=== PATIENT | female | born 1975 | race American Indian/Alaskan Native ===

== ENCOUNTER 2019-06-04 13:42 | Outpatient (CLI) | payer BC ==
[2019-06-04 14:16] LABS: Hematocrit 35.3 % (30.3-42.9); Hemoglobin 11.4 gm/dl (10.1-14.3); Mean Corpuscular HGB Conc 32 % (30-34); Mean Corpuscular Volume 81 fl (79-97); Platelet Count 276 K/mm3 (140-440); Red Blood Count 4.37 M/mm3 (3.65-5.03); Red Cell Distribution Width 19.4 % (13.2-15.2)
[2019-06-04 14:37] LABS: Erythrocyte Sedimentation Rate 16 mm/Hr (0-20)
[2019-06-04 15:43] LABS: Alanine Aminotransferase 19 units/L (7-56); BUN/Creatinine Ratio 17; Blood Urea Nitrogen 12 mg/dL (7-17); Calcium 10.2 mg/dL (8.4-10.2); Hemolysis Index 3
[2019-06-09 16:40] LABS: Vitamin D, 25-OH, D2 <4 ng/mL
== END 2019-06-04 13:43 | disposition home or self-care (01) ==
LOC: LAB 13:42
PROVIDERS: ATTEND Specialist
DX: G45.9 Transient cerebral ischemic attack, unspecified (principal); R55 Syncope and collapse
CPT/HCPCS: 36415; 80053; 82306; 82607; 83036; 83921; 84443; 85027; 85652; 86038; 86225; 86334; 86431; 86592; 86689

== ENCOUNTER 2020-01-19 10:59 | Emergency (ER) | payer BC ==
[2020-01-19 11:15] VITALS: BP 152/106
--- NOTE | 2020-01-19 14:07 | Emergency Department Report ---
ED ENT HPI - General Chief complaint: Sore Throat Stated complaint: THROAT PAIN Time Seen by Provider: 01/19/20 12:18 Source: patient Mode of arrival: Ambulatory Limitations: No Limitations - History of Present Illness Initial comments: 44-year-old -Faro[place] female presents emergency department complaining of a few month history of episodic odynophagia and dysphagia have a burning sensation when eating and drinking certain things. She did drink some turmeric to try to help resolve the symptoms which made the burning worse. She reports no dyspepsia no nausea or or vomiting no change in voice no drooling. No pain to the area no fevers chills or sweats MD complaint: sore throat -: Gradual, month(s) Location: throat Severity: mild, moderate Quality: dull Consistency: constant Improves with: none Worsens with: swallowing Associated Symptoms: sore throat. denies: cough, gum swelling, discharge from ear, rhinorrhea - Related Data Previous Rx's Medication Instructions Recorded Last Taken Type Hydrocortisone 1% [Hydrocortisone 1 applicatio TP TID #1 tube 12/26/14 Unknown Rx 1% CREAM] Ibuprofen [Motrin] 800 mg PO Q8HR PRN #90 tablet 12/26/14 Unknown Rx hydrOXYzine PAMOATE [Vistaril] 25 mg PO Q6HR PRN #20 capsule 12/26/14 Unknown Rx traMADoL [Ultram] 50 mg PO Q6HR PRN #14 tablet 12/26/14 Unknown Rx Amoxicillin [Trimox CAP] 500 mg PO Q8H #30 capsule 01/19/20 Unknown Rx Pantoprazole Sodium [Protonix] 40 mg PO DAILY #20 01/19/20 Unknown Rx Allergies Allergy/AdvReac Type Severity Reaction Status Date / Time No Known Allergies Allergy Unverified 12/26/14 20:40 ED Dental HPI - General Chief complaint: Sore Throat Stated complaint: THROAT PAIN Time Seen by Provider: 01/19/20 12:18 Source: patient Mode of arrival: Ambulatory Limitations: No Limitations - Related Data Previous Rx's Medication Instructions Recorded Last Taken Type Hydrocortisone 1% [Hydrocortisone 1 applicatio TP TID #1 tube 12/26/14 Unknown Rx 1% CREAM] Ibuprofen [Motrin] 800 mg PO Q8HR PRN #90 tablet 12/26/14 Unknown Rx hydrOXYzine PAMOATE [Vistaril] 25 mg PO Q6HR PRN #20 capsule 12/26/14 Unknown Rx traMADoL [Ultram] 50 mg PO Q6HR PRN #14 tablet 12/26/14 Unknown Rx Amoxicillin [Trimox CAP] 500 mg PO Q8H #30 capsule 01/19/20 Unknown Rx Pantoprazole Sodium [Protonix] 40 mg PO DAILY #20 granpkt. 01/19/20 Unknown Rx Allergies Allergy/AdvReac Type Severity Reaction Status Date / Time No Known Allergies Allergy Unverified 12/26/14 20:40 ED Review of Systems ROS: Stated complaint: THROAT PAIN Other details as noted in HPI Comment: All other systems reviewed and negative ED Past Medical Hx - Past Medical History Previous Medical History?: No Additional medical history: Vaginal delivery x 3 - Social History Smoking Status: Never Smoker Substance Use Type: Alcohol - Medications Home Medications: Home Medications Medication Instructions Recorded Confirmed Last Taken Type Hydrocortisone 1% [Hydrocortisone 1 applicatio TP TID #1 tube 12/26/14 Unknown Rx 1% CREAM] Ibuprofen [Motrin] 800 mg PO Q8HR PRN #90 tablet 12/26/14 Unknown Rx hydrOXYzine PAMOATE [Vistaril] 25 mg PO Q6HR PRN #20 capsule 12/26/14 Unknown Rx traMADoL [Ultram] 50 mg PO Q6HR PRN #14 tablet 12/26/14 Unknown Rx Amoxicillin [Trimox CAP] 500 mg PO Q8H #30 capsule 01/19/20 Unknown Rx Pantoprazole Sodium [Protonix] 40 mg PO DAILY #20 granpkt. 01/19/20 Unknown Rx ED Physical Exam - General Limitations: No Limitations General appearance: alert, in no apparent distress - Head Head exam: Present: atraumatic, normocephalic - Eye Eye exam: Present: normal appearance, PERRL, EOMI. Absent: scleral icterus Pupils: Present: normal accommodation - ENT ENT exam: Present: mucous membranes moist, TM's normal bilaterally, other (Pharynx is red with some erythema no exudate. Airway patent tongue and uvula are midline and normal size. Normal voice no drooling. Neck tenderness to the tonsillar lymph nodes with palpation. Mild swelling to the right tonsillar lymph node. No cellulitis is appreciated.). Absent: normal orophraynx - Neck Neck exam: Present: normal inspection, full ROM - Respiratory Respiratory exam: Present: normal lung sounds bilaterally. Absent: respiratory distress, wheezes, rales, chest wall tenderness, accessory muscle use - Cardiovascular Cardiovascular Exam: Present: regular rate, normal rhythm. Absent: systolic murmur, diastolic murmur, rubs, gallop - GI/Abdominal GI/Abdominal exam: Present: soft, normal bowel sounds. Absent: tenderness, guarding, rigid, hypoactive bowel sounds, organomegaly, mass - Extremities Exam Extremities exam: Present: normal inspection - Back Exam Back exam: Present: normal inspection - Neurological Exam Neurological exam: Present: alert, oriented X3 - Psychiatric Psychiatric exam: Present: normal affect, normal mood - Skin Skin exam: Present: warm, dry, intact, normal color. Absent: rash ED Course Vital Signs 01/19/20 11:12 Temperature 98.3 F Pulse Rate 75 Respiratory 20 Rate Blood Pressure 152/106 O2 Sat by Pulse 100 Oximetry Critical care attestation.: If time is entered above; I have spent that time in minutes in the direct care of this critically ill patient, excluding procedure time. ED Disposition Clinical Impression: Acute pharyngitis Disposition: DC-01 TO HOME OR SELFCARE Is pt being admited?: No Does the pt Need Aspirin: No Condition: Stable Instructions: Pharyngitis (ED), Strep Throat (ED) Prescriptions: Pantoprazole Sodium [Protonix] 40 mg PO DAILY #20 granpkt. Amoxicillin [Trimox CAP] 500 mg PO Q8H #30 capsule Referrals: JAMESON ALVAREZ MD [Staff Physician] - 3-5 Days
[2020-01-19] MEDS ORDERED: dexAMETHasone 4 MG/ML VIAL PO ONE (14:21)
== END 2020-01-19 14:30 | disposition home or self-care (01) ==
LOC: ED 10:59
DX: J02.9 Acute pharyngitis, unspecified (principal); Z79.899 Other long term (current) drug therapy; Z98.890 Other specified postprocedural states
CPT/HCPCS: 99282; J1100

== ENCOUNTER 2021-03-14 22:23 | Emergency (ER) | payer BC ==
[2021-03-14] MEDS ORDERED: hydrALAZINE 25 MG TAB PO ONE (22:39)
[2021-03-14] MEDS ORDERED: ASPIRIN 325 MG TAB PO ONE (22:39)
[2021-03-14] MEDS ORDERED: BUTALB/ACETAMINOPHEN/CAFFEINE TAB PO ONE (22:40)
[2021-03-14 23:48] LABS: Basophils % (Auto) 0.5 % (0.0-1.8); Eosinophils # (Auto) 0.1 K/mm3 (0.0-0.4); Eosinophils % (Auto) 2.2 % (0.0-4.3); Hematocrit 42.7 % (30.3-42.9); Hemoglobin 14.1 gm/dl (10.1-14.3); Lymphocytes % (Auto) 49.1 % (13.4-35.0); Mean Corpuscular HGB Conc 33 % (30-34); Mean Corpuscular Volume 94 fl (79-97); Monocytes # (Auto) 0.3 K/mm3 (0.0-0.8); Monocytes % (Auto) 4.9 % (0.0-7.3); Platelet Count 214 K/mm3 (140-440); Red Blood Count 4.57 M/mm3 (3.65-5.03); Red Cell Distribution Width 13.8 % (13.2-15.2)
--- NOTE | 2021-03-15 00:21 | XRay Report ---
XR chest routine 2V INDICATION / CLINICAL INFORMATION: chest pain, elevated BP. COMPARISON: None available. FINDINGS: SUPPORT DEVICES: None. HEART /PULMONARY VASCULATURE: No significant abnormality. LUNGS / PLEURA: No significant pulmonary or pleural abnormality. No pneumothorax. ADDITIONAL FINDINGS: No significant additional findings. IMPRESSION: 1. No acute findings. Signer Name: Jono Zapata MD Signed: 03/15/2021 12:16 AM Workstation Name: [id number]
[2021-03-15 00:22] LABS: Alanine Aminotransferase 20 units/L (7-56); Albumin 4.7 g/dL (3.9-5); Blood Urea Nitrogen 13 mg/dL (7-17); Calcium 9.9 mg/dL (8.4-10.2); Hemolysis Index 14
[2021-03-15 00:43] LABS: BUN/Creatinine Ratio 22
--- NOTE | 2021-03-15 01:00 | Emergency Department Report ---
ED General Adult HPI - General Chief complaint: High BP Stated complaint: HEADACHE AND HIGH BP Source: patient Mode of arrival: Ambulatory Limitations: No Limitations - History of Present Illness Initial comments: Patient is a 45-year-old -[place] female with no past medical history presents to the ED with complaint of acute onset persistent intermittent headache, lightheadedness, chest pain for the last 2 weeks intermittently. Patient also complains of persistently elevated blood pressure especially in the last 2 weeks, worse in the last 2 days. Patient states that her blood pressure prior to arrival in the ED was 180s systolic. Patient denies dizziness, synco pe, shortness of breath, palpitations, seizures, diaphoresis, neck pain, abdominal pain, nausea and vomiting, numbness and tingling or weakness of upper and lower extremities bilaterally. MD Complaint: Elevated blood pressure; persistent headache -: Sudden, week(s) (2) Location: head Radiation: non-radiation Severity scale (0 -10): 4 Quality: aching, sharp Consistency: intermittent Improves with: none Worsens with: none Associated Symptoms: denies other symptoms, chest pain. denies: confusion, cough, diaphoresis, fever/chills, headaches, loss of appetite, malaise, nausea/vomiting, rash, seizure, shortness of breath, syncope, weakness, other Treatments Prior to Arrival: none - Related Data Previous Rx's Medication Instructions Recorded Last Taken Type Hydrocortisone 1% [Hydrocortisone 1 applicatio TP TID #1 tube 12/26/14 Unknown Rx 1% CREAM] Ibuprofen [Motrin] 800 mg PO Q8HR PRN #90 tablet 12/26/14 Unknown Rx hydrOXYzine PAMOATE [Vistaril] 25 mg PO Q6HR PRN #20 capsule 12/26/14 Unknown Rx traMADoL [Ultram] 50 mg PO Q6HR PRN #14 tablet 12/26/14 Unknown Rx Amoxicillin [Trimox CAP] 500 mg PO Q8H #30 capsule 01/19/20 Unknown Rx Pantoprazole Sodium [Protonix] 40 mg PO DAILY #20 gran 01/19/20 Unknown Rx Butalb/Acetamin/Caff 50-325-40 1 - 2 tab PO Q6HR PRN #15 tab 03/15/21 Unknown Rx [Fioricet 50-325-40] amLODIPine 10 mg PO DAILY #30 tab 03/15/21 Unknown Rx Allergies Allergy/AdvReac Type Severity Reaction Status Date / Time No Known Allergies Allergy Unverified 12/26/14 20:40 ED Review of Systems ROS: Stated complaint: HEADACHE AND HIGH BP Other details as noted in HPI Constitutional: other (Elevated blood pressure). denies: chills, fever Eyes: denies: eye pain, eye discharge, vision change ENT: denies: ear pain, throat pain Respiratory: denies: cough, shortness of breath, wheezing Cardiovascular: chest pain. denies: palpitations Endocrine: no symptoms reported Gastrointestinal: denies: abdominal pain, nausea, diarrhea Genitourinary: denies: urgency, dysuria, discharge Musculoskeletal: denies: back pain, joint swelling, arthralgia Skin: denies: rash, lesions Neurological: headache. denies: weakness, paresthesias Psychiatric: denies: anxiety, depression Hematological/Lymphatic: denies: easy bleeding, easy bruising ED Past Medical Hx - Past Medical History Previous Medical History?: Yes Hx Hypertension: Yes Additional medical history: Vaginal delivery x 3 - Surgical History Past Surgical History?: No - Social History Smoking Status: Never Smoker Substance Use Type: Alcohol - Medications Home Medications: Home Medications Medication Instructions Recorded Confirmed Last Taken Type Hydrocortisone 1% [Hydrocortisone 1 applicatio TP TID #1 tube 12/26/14 Unknown Rx 1% CREAM] Ibuprofen [Motrin] 800 mg PO Q8HR PRN #90 tablet 12/26/14 Unknown Rx hydrOXYzine PAMOATE [Vistaril] 25 mg PO Q6HR PRN #20 capsule 12/26/14 Unknown Rx traMADoL [Ultram] 50 mg PO Q6HR PRN #14 tablet 12/26/14 Unknown Rx Amoxicillin [Trimox CAP] 500 mg PO Q8H #30 capsule 01/19/20 Unknown Rx Pantoprazole Sodium [Protonix] 40 mg PO DAILY #20 01/19/20 Unknown Rx Butalb/Acetamin/Caff 50-325-40 1 - 2 tab PO Q6HR PRN #15 tab 03/15/21 Unknown Rx [Fioricet 50-325-40] amLODIPine 10 mg PO DAILY #30 tab 03/15/21 Unknown Rx ED Physical Exam - General Limitations: No Limitations General appearance: alert, in no apparent distress - Head Head exam: Present: atraumatic, normocephalic, normal inspection - Eye Eye exam: Present: normal appearance, PERRL, EOMI Pupils: Present: normal accommodation - ENT ENT exam: Present: normal exam, normal orophraynx, mucous membranes moist, TM's normal bilaterally, normal external ear exam - Neck Neck exam: Present: normal inspection, full ROM - Respiratory Respiratory exam: Present: normal lung sounds bilaterally. Absent: respiratory distress, wheezes, rales, rhonchi, chest wall tenderness, accessory muscle use, decreased breath sounds, prolonged expiratory - Cardiovascular Cardiovascular Exam: Present: regular rate, normal rhythm, normal heart sounds. Absent: systolic murmur, diastolic murmur, rubs, gallop - GI/Abdominal GI/Abdominal exam: Present: soft, normal bowel sounds. Absent: tenderness, guarding, rebound, hyperactive bowel sounds, hypoactive bowel sounds, mass, hernia - Extremities Exam Extremities exam: Present: normal inspection, full ROM, normal capillary refill - Back Exam Back exam: Present: normal inspection, full ROM. Absent: tenderness, CVA tenderness (R), CVA tenderness (L), muscle spasm, paraspinal tenderness, vertebral tenderness - Neurological Exam Neurological exam: Present: alert, oriented X3, CN II-XII intact, normal gait, reflexes normal - Psychiatric Psychiatric exam: Present: normal affect, normal mood, anxious - Skin Skin exam: Present: warm, dry, intact, normal color. Absent: rash ED Course Vital Signs 03/14/21 03/14/21 03/15/21 22:26 23:30 01:34 Temperature 98.0 F 98.2 F Pulse Rate 79 158 H 80 Respiratory 18 20 Rate Blood Pressure 158/95 158/102 Blood Pressure 136/90 [Right] O2 Sat by Pulse 98 100 Oximetry ED Medical Decision Making - Lab Data Result diagrams: 03/14/21 23:05 03/14/21 23:05 - Radiology Data Radiology results: report reviewed, image reviewed - Medical Decision Making This is a 45-year-old -[place] female with no past medical history presents to the ED with complaint of acute onset persistent intermittent headache, lightheadedness, chest pain for the last 2 weeks intermittently. Patient also complains of persistently elevated blood pressure especially in the last 2 weeks, worse in the last 2 days. Patient states that her blood pressure prior to arrival in the ED was 180s systolic. In the ED, patient is alert and oriented x3 and is not in any distress. Chest x-ray shows no acute c ardiopulmonary abnormalities or pneumonitis. Lab test results were reviewed and are all nonactionable. Patient was treated in the ED for pain and also given treatment for hypertension. On reevaluation, patient's blood pressure improved significantly and patient's headache resolved with medications. Patient was therefore discharged home on a prescription of antihypertensive medications and was advised to follow-up with her primary care physician in 5 to 7 days for reevaluation or return to the ED immediately if symptoms get worse. - Differential Diagnosis Uncontrolled hypertension; anxiety; ACS; pneumonia; Critical care attestation.: If time is entered above; I have spent that time in minutes in the direct care of this critically ill patient, excluding procedure time. ED Disposition Clinical Impression: Uncontrolled stage 2 hypertension Acute tension-type headache Qualifiers: Intractability: not intractable Qualified Code(s): G44.209 - Tension-type headache, unspecified, not intractable Disposition: 01 HOME / SELF CARE / HOMELESS Is pt being admited?: No Does the pt Need Aspirin: No Condition: Stable Instructions: Tension Headache, Adult, [id number], Hypertension, Adult, [id number], Managing Your Hypertension, Hypertension (ED) Additional Instructions: All lab test results were reviewed and are all nonactionable. Chest x-ray showed no acute cardiopulmonary abnormalities or pneumonitis. Therefore take medications with food, drink plenty fluids and follow-up with your primary care physician in 7 to 10 days for reevaluation. Return to the ED immediately if your symptoms get worse. Prescriptions: amLODIPine 10 mg PO DAILY #30 tab Butalb/Acetamin/Caff 50-325-40 [Fioricet 50-325-40] 1 - 2 tab PO Q6HR PRN #15 tab PRN Reason: Headache Referrals: KANNAN HANEY MD [Staff Physician] - 3-5 Days Forms: Work/School Release Form(ED) Time of Disposition: 01:00 Print Language: BULGARIAN
[2021-03-15 01:36] VITALS: BP 136/90
--- NOTE | 2021-03-15 18:38 | Electrocardiograph Report ---
[facility] Test Date: 2021-03-14 Test Time: 22:54:07 Pat Name: LIAM JUAREZ Department: Room: Gender: F Practicing Urologist: JANE : 1975 Requested By: LOKESH ALMODOVAR Order Number: [id number] Reading MD: Kush Chatterjee Measurements Intervals [place] Rate: 69 P: 50 GA: 197 QRS: -28 QRSD: 105 T: 21 QT: 389 QTc: 418 Interpretive Statements Sinus rhythm Consider anteroseptal infarct No previous ECG available for comparison Electronically Signed On 03-15-2021 18:37:53 EST by Kush Chatterjee
== END 2021-03-15 01:33 | disposition home or self-care (01) ==
LOC: ED 22:23
DX: I10 Essential (primary) hypertension (principal); G44.209 Tension-type headache, unspecified, not intractable
CPT/HCPCS: 36415; 71046; 80053; 83880; 84484; 85025; 93005; 99284